=== PATIENT | male | born 1990 | race Hispanic/Latino ===

== ENCOUNTER 2018-12-30 13:19 | Emergency (ER) | payer SELFPAY ==
[2018-12-30 13:57] LABS: Bilirubin Negative (Negative); Blood, Urine Negative (Negative); Clarity Clear (Clear); Glucose, Urine (Dipstick) Negative (Negative); Leukocyte Negative (Negative); Nitrite Negative (Negative); Protein, Urine (Dipstick) Negative (Neg-Trace); Urobilinogen 0.2 mg/dL (Less than 2)
[2018-12-30] MEDS ORDERED: Ibuprofen 800 MG TAB ONE (13:57)
[2018-12-30] MEDS ORDERED: traMADol HCl 50 MG TAB ONE (13:58)
--- NOTE | 2018-12-30 14:21 | CT ---
CT ABDOMEN AND PELVIS WITHOUT CONTRAST: Date: 12/30/[address] of the abdomen and pelvis was performed. The lung bases are clear. There may be a trace of fluid in the lower esophagus, such as might be seen with mild reflux. The liver, spleen, pancreas, adrenal glands, gallbladder, kidneys, and abdominal a samy all appear normal within the limitations of a noncontrast study. The bowel shows no distention, inflammatory changes, or particular wall thickening. The appendix appears normal. No mesenteric abnor malities seen. CT of the pelvis shows no pelvic masses, fluid collections, or inflammatory changes. The bony structu res of the pelvis and lumbar spine are unremarkable. IMPRESSION: No significant abdominal or pelvic findings to explain the patient's left flank pain. POS: HOME
== END 2018-12-30 14:37 | disposition home or self-care (01) ==
LOC: BURERS 13:19
DX: R10.32 Left lower quadrant pain (principal)
CPT/HCPCS: 74176; 81003